=== PATIENT | female | born 2000 | race African-American/Black ===

== ENCOUNTER 2019-03-04 14:07 | Observation (INO) ==
--- NOTE | 2019-03-04 15:18 | Emergency Department Note ---
Overdose - [facility] Narrative Medical decision making narrative: EKG was obtained that showed evidence of sinus rhythm 72 beats a minute, patient does appear to have right axis deviation. Do not appreciate ST elevation or si gnificant depression, SD and QT intervals are within normal limits. Interpreted by myself. Case was also discussed with Poison Control Center. At this time patient is only having a symptom of some tiredness. At this point in time the patient has no arrhythmias. The patient will be further supported here in emergency room. Poison control stated to 6 hours from time of ingestion should be a medical clearance time. This would put her at 7pm for medical clearance. Patient remained stable here in the emergency room, the patient was medically clear, patient was evaluated by psychiatric services. Patient is going to be admitted to the psychiatric floor in otherwise stable condition. As was again discussed with poison control. At this time patient has been managed supportively, On monitor. Patient has had no widening of QRS. The patient has remained stable. - Lab Data Result diagrams: 03/04/19 14:59 03/04/19 14:59 Lab Results 03/04/19 03/04/19 03/04/19 Range/Units 14:55 14:59 14:59 WBC 8.1 (4.3-11.1) K/mcL RBC 4.68 (3.82-4.97) M/mcL Hgb 14.4 (11.5-15.4) g/dL Hct 43.8 (35.3-44.9) % MCV 93.6 (83.0-100.0) fL MCH 30.8 (28.0-33.3) pg MCHC 32.9 (31.6-35.5) g/dL RDW 12.3 (11.5-14.5) % Plt Count 336 (140-400) K/mcL MPV 9.1 L (9.4-12.4) fL Immature Gran % 0.5 (0-4) % Seg Neutrophils % 54.3 % Lymphocytes % 34.4 % Monocytes % 8.7 % Eosinophils % 1.6 % Basophils % 0.5 % Neutrophils # 4.4 (1.6-8.9) K/mcL Lymphocytes # 2.8 (0.6-4.6) K/mcL Monocytes # 0.7 (0.0-1.3) K/mcL Eosinophils # 0.1 (0.0-0.6) K/mcL Basophils # 0.0 (0.0-0.2) K/mcL Sodium 140 (136-145) mEq/L Potassium 3.9 (3.5-5.1) mEq/L Chloride 107 (98-107) mEq/L Carbon Dioxide 25 (23-29) mEq/L BUN 9 (6-20) mg/dL Creatinine 0.71 (0.60-1.20) mg/dL Est GFR ( Amer) > 60 Est GFR (Non-Af Amer) > 60 BUN/Creatinine Ratio 13 (6-26) Glucose 92 (70-105) mg/dL Calculated Osmolality 288 (280-300) Calcium 9.5 (8.6-10.3) mg/dL Urine Color Yellow (Yellow) Urine Clarity Clear (Clear) Urine pH 7.0 (5.0-8.0) pH Units Ur Specific [place] 1.029 H (1.010-1.025) Urine Protein Trace (Neg-Trace) mg/dL Urine Glucose (UA) Normal (Normal) mg/dL Urine Ketones Negative (Negative) mg/dL Urine Blood Negative (Negative) Urine Nitrite Negative (Negative) Urine Bilirubin Negative (Negative) Urine Urobilinogen Normal (Normal) mg/dL Ur Leukocyte Esterase Moderate H (Negative) Urine Microscopic RBC 3-5 H (0-3) per hpf Urine Microscopic WBC 15-30 H (0-3) per hpf Ur Squamous Epith Cells Many H (None-Few) per lpf Urine Bacteria Few (None-Few) per hpf Hyaline Casts None Seen (None-Few) per lpf Urine Test (Negative) Salicylates < 2.5 L (15.0-30.0) mg/dL Urine Opiates Screen (Iofvve=385) ng/mL Ur Buprenorphine Scrn (Cutoff=5) ng/mL Acetaminophen < 10 L (10-20) mcg/mL Ur Barbiturates Screen (Eqkgwn=888) ng/mL Ur Phencyclidine Scrn (Cutoff=25) ng/mL Ur Amphetamines Screen (Wlkuae=3534) ng/mL U Benzodiazepines Scrn (Wbhwkz=650) ng/mL Urine Cocaine Screen (Cutoff= 300) ng/mL U Marijuana (THC) Screen (Cutoff = 50) ng/mL Ur Drug Screen Interp Ethyl Alcohol < 10 (Less than 10) mg/dL 03/04/19 03/04/19 Range/Units 15:04 15:04 WBC (4.3-11.1) K/mcL RBC (3.82-4.97) M/mcL Hgb (11.5-15.4) g/dL Hct (35.3-44.9) % MCV (83.0-100.0) fL MCH (28.0-33.3) pg MCHC (31.6-35.5) g/dL RDW (11.5-14.5) % Plt Count (140-400) K/mcL MPV (9.4-12.4) fL Immature Gran % (0-4) % Seg Neutrophils % % Lymphocytes % % Monocytes % % Eosinophils % % Basophils % % Neutrophils # (1.6-8.9) K/mcL Lymphocytes # (0.6-4.6) K/mcL Monocytes # (0.0-1.3) K/mcL Eosinophils # (0.0-0.6) K/mcL Basophils # (0.0-0.2) K/mcL Sodium (136-145) mEq/L Potassium (3.5-5.1) mEq/L Chloride (98-107) mEq/L Carbon Dioxide (23-29) mEq/L BUN (6-20) mg/dL Creatinine (0.60-1.20) mg/dL Est GFR ( Amer) Est GFR (Non-Af Amer) BUN/Creatinine Ratio (6-26) Glucose (70-105) mg/dL Calculated Osmolality (280-300) Calcium (8.6-10.3) mg/dL Urine Color (Yellow) Urine Clarity (Clear) Urine pH (5.0-8.0) pH Units Ur Specific [place] (1.010-1.025) Urine Protein (Neg-Trace) mg/dL Urine Glucose (UA) (Normal) mg/dL Urine Ketones (Negative) mg/dL Urine Blood (Negative) Urine Nitrite (Negative) Urine Bilirubin (Negative) Urine Urobilinogen (Normal) mg/dL Ur Leukocyte Esterase (Negative) Urine Microscopic RBC (0-3) per hpf Urine Microscopic WBC (0-3) per hpf Ur Squamous Epith Cells (None-Few) per lpf Urine Bacteria (None-Few) per hpf Hyaline Casts (None-Few) per lpf Urine Test Negative (Negative) Salicylates (15.0-30.0) mg/dL Urine Opiates Screen Negative (Zdjoqg=382) ng/mL Ur Buprenorphine Scrn Negative (Cutoff=5) ng/mL Acetaminophen (10-20) mcg/mL Ur Barbiturates Screen Negative (Tmkxqm=231) ng/mL Ur Phencyclidine Scrn Negative (Cutoff=25) ng/mL Ur Amphetamines Screen Negative (Blwzhz=8284) ng/mL U Benzodiazepines Scrn Negative (Awrdps=777) ng/mL Urine Cocaine Screen Negative (Cutoff= 300) ng/mL U Marijuana (THC) Screen Positive H (Cutoff = 50) ng/mL Ur Drug Screen Interp See Below Ethyl Alcohol (Less than 10) mg/dL Overdose HPI - General Chief Complaint: ED Overdose Stated Complaint: si/od Time Seen by Provider: 03/04/19 15:10 Source: patient Limitations: no limitations - History of Present Illness HPI Narrative: Patient is 18-year-old female presents to emergency room after an overdose. The patient does have complaints of suicidal ideation that was her main goal was to try to hurt herself. The patient states that she took 20, 20 mg tablets of Lexapro and 10, 2 mg tablets of Abilify. Patient states that she only complains of some mild tenderness currently. She denies any lightheadedness, chest pain, palpitations, abdominal pain. Patient states that she has tried herself in the past. She has been admitted to [facility] in [place] in the past. The patient denies any other focal arm or leg weakness. The patient denies any GI or complaints. - Related Data Home Medications Medication Instructions Recorded Confirmed Synthroid 0.112 mg PO DAILY 06/25/15 03/04/19 ARIPiprazole [Abilify] 2 mg PO HS 03/04/19 03/04/19 Escitalopram [Lexapro] 20 mg PO DAILY 03/04/19 03/04/19 Allergies Allergy/AdvReac Type Severity Reaction Status Date / Time No Known Allergies Allergy Verified 06/26/17 10:06 Review of Systems: As mentioned per history of present illness and as follows. Constitutional: Negative for chills or fever HENT: Negative for sore throat. Eyes: Negative for visual disturbance Respiratory: Negative for shortness of breath. Cardiovascular: Negative for palpitations. Gastrointestinal: Negative for abdominal pain Genitourinary: Negative for dysuria Musculoskeletal: Negative for back pain. Skin: Negative for rash. Neurological: Negative for focal weakness Psychiatric/Behavioral: Positive for depression Past Medical History - Past Medical History Medical history: Reports: thyroid disease Surgical history: Reports: no surgical history Psychiatric history: Reports: anxiety, depression - Social History Smoking Status: Current every day smoker Smokeless Tobacco Status: No Alcohol use: Reports: occasionally Drug use: Reports: none Physical Exam PHYSICAL EXAM Constitutional: Well developed, Well nourished, obese, No acute distress, Non- toxic appearance. HENT: Normocephalic, Atraumatic, Bilateral external ears normal, Oropharynx moist, No oral exudates, Nose normal. Neck- Normal range of motion, No tenderness, Supple. Eyes: PERRL, EOMI, Conjunctiva normal,. Cardiovascular: Regular rate and rhythm without clicks, rubs, gallops or murmurs. Respiratory: Normal breath sounds, No respiratory distress, No wheezing, rhonchi, or crackles. GI: Soft, nontender, no evidence of guarding or peritoneal signs. Bowel sounds are active. Musculoskeletal: Good range of motion in all major joints. No tenderness to palpation or major deformities noted. +5/5 strength noted to all extremities. Integument: Warm, Dry, No erythema, No rash. No edema. Neurologic: Alert & oriented x 3, Normal sensory function, No focal deficits noted. CN II-XII grossly intact. Psychiatric: The patient does voice suicidal ideation, she does have a somewhat flat affect here in the emergency room, she has not emotional. The patient does make good eye contact - General Limitations: no limitations General appearance: alert, in no apparent distress Course Vital Signs Temperature 98.5 F 03/04/19 14:13 Pulse Rate 89 03/04/19 14:13 Respiratory Rate 18 03/04/19 14:13 Blood Pressure 133/81 03/04/19 14:13 O2 Sat by Pulse Oximetry 98 03/04/19 14:13 Temperature 98.5 F 03/04/19 14:13 Pulse Rate 62 03/04/19 17:46 Respiratory Rate 14 03/04/19 17:46 Blood Pressure 113/63 03/04/19 17:46 O2 Sat by Pulse Oximetry 96 03/04/19 17:46 Oxygen Delivery Oxygen Delivery Room Air Critical Care Time Critical Care Time: Yes Total Critical Care Time: 35 Attestation: CRITICAL CARE TIME OF 35 MINUTES PERFORMING THIS INDIVIDUAL OUTSIDE OF SEPARATELY BILLABLE PROCEDURES. THIS INCLUDES BEDSIDE EVALUATION, INTERPRETATION OF EKG AND LAB TESTS AND CONSULTATIONS. Disposition Clinical Impression: Suicide attempt by multiple drug overdose Disposition: Admitted As Inpatient Condition: Fair Time of Disposition: 20:41
[2019-03-04 15:19] LABS: Basophils % 0.5 %; Eosinophils # 0.1 K/mcL (0.0-0.6); Eosinophils % 1.6 %; Hematocrit 43.8 % (35.3-44.9); Hemoglobin 14.4 g/dL (11.5-15.4); Immature Granulocytes % 0.5 % (0-4); Lymphocytes # 2.8 K/mcL (0.6-4.6); Lymphocytes % 34.4 %; Mean Corpuscular HGB Conc 32.9 g/dL (31.6-35.5); Mean Corpuscular Hemoglobin 30.8 pg (28.0-33.3); Mean Corpuscular Volume 93.6 fL (83.0-100.0); Mean Platelet Volume 9.1 fL (9.4-12.4); Monocytes # 0.7 K/mcL (0.0-1.3); Monocytes % 8.7 %; Neutrophils # 4.4 K/mcL (1.6-8.9); Platelet Count 336 K/mcL (140-400); Red Blood Count 4.68 M/mcL (3.82-4.97); Red Cell Distribution Width 12.3 % (11.5-14.5); Segmented Neutrophils % 54.3 %; White Blood Count 8.1 K/mcL (4.3-11.1)
[2019-03-04 15:19] LABS: Bilirubin,Urine Negative (Negative); Blood,Urine Negative (Negative); Clarity,Urine Clear (Clear); Color,Urine Yellow (Yellow); Glucose,Urine (UA) Normal (Normal); Ketones,Urine Negative (Negative); Leukocyte Esterase,Urine Moderate (Negative); Nitrite,Urine Negative (Negative); Protein,Urine Trace mg/dL (Neg-Trace); Specific Gravity,Urine 1.029 (1.010-1.025); Urobilinogen,Urine Normal (Normal)
[2019-03-04 15:22] LABS: Bacteria,Urine Few per hpf (None-Few); Hyaline Casts,Urine None Seen per lpf (None-Few); Squamous Epithelial Cell,Urine Many per lpf (None-Few); WBC,Urine 15-30 per hpf (0-3)
[2019-03-04 16:07] LABS: Acetaminophen < 10 mcg/mL (10-20); BUN/Creatinine Ratio 13 (6-26); Blood Urea Nitrogen 9 mg/dL (6-20); Calcium 9.5 mg/dL (8.6-10.3); Carbon Dioxide 25 mEq/L (23-29); Chloride 107 mEq/L (98-107); Ethanol < 10 mg/dL (Less than 10); Glucose 92 mg/dL (70-105); Osmolality,Calculated 288 (280-300); Potassium 3.9 mEq/L (3.5-5.1); Salicylate < 2.5 mg/dL (15.0-30.0); Sodium 140 mEq/L (136-145); eGFR For African Americans > 60; eGFR For Non-African Americans > 60
[2019-03-04 16:17] LABS: Amphetamine Screen,Urine Negative ng/mL (Cutoff=1000); Barbiturate Screen,Urine Negative ng/mL (Cutoff=200); Benzodiazepines Screen,Urine Negative ng/mL (Cutoff=200); Cannabinoid Screen,Urine Positive ng/mL (Cutoff = 50); Cocaine Screen,Urine Negative ng/mL (Cutoff= 300); Opiate Screen,Urine Negative ng/mL (Cutoff=300); Phencyclidine Screen,Urine Negative ng/mL (Cutoff=25)
[2019-03-04] MEDS ORDERED: Haloperidol Lactate 5 MG/ML VIAL IM PRN (21:22)
[2019-03-04] MEDS ORDERED: traZODone 50 MG TABLET PO PRN (21:22)
[2019-03-04] MEDS ORDERED: Acetaminophen 325 MG TABLET PO PRN (21:22)
[2019-03-04] MEDS ORDERED: *HR* LORazepam 1 MG TABLET PO PRN (21:22)
[2019-03-04] MEDS ORDERED: hydrOXYzine pamoate 25 MG CAPSULE PO PRN (21:22)
[2019-03-04] MEDS ORDERED: Nicotine 2 MG GUM BC PRN (21:22)
[2019-03-04] MEDS ORDERED: Mag Hydrox/Al Hydrox/Simeth 30 ML UDC PO PRN (21:22)
[2019-03-04] MEDS ORDERED: MOM Conc 10 ML UD.LIQ PO PRN (21:22)
[2019-03-04] MEDS ORDERED: *HR* LORazepam 2 MG/ML VIAL IM PRN (21:22)
[2019-03-04] MEDS ORDERED: ARIPiprazole 2 MG TABLET PO SCH (21:30)
[2019-03-05 09:56] VITALS: BP 106/71
--- NOTE | 2019-03-05 10:31 | Discharge Summary ---
Date of Encounter: 03/05/19 Time of Encounter: 10:17 History of Present Illness Chief complaint: overdose Admitted From: Home History of Present Illness: Ms. Post is a 18 year old female who was admitted after overdosing on her Lexapro and Abilify. Client believes she took 20 of one pill and 10 of another. Client states she was triggered to take the medications due to being alone. Client reports she does not like to be alone. Client states she is normally surrounded by people but that recently she has been house sitting and that yesterday she did not have enough contact with others. Client has chronic SI but states that provided she is around people she will not act on them. However, yesterday client states she did not have anyone around when experiencing her SI. Client states she is an "impulsive" person and will act on her suicidal thoughts without much provocation. Client states she has overdosed multiple times in her life in addition to trying things like "drowning" and "suffocation" but has only been hospitalized once at [facility] as a juvenile. Client is denying any further thoughts of suicide today. States she "regrets" taking her pills again. "I could be home right now with my sister and cuddling her cat." Client has supportive family including both parents and eleven siblings. Client also typically has the people she house sits for with her but they are on vacation. Client states they return tonight and client's father verified this. This feature writer spoke with client's father who feels comfortable having client come home. He is very familiar with client's tendency to act impulsively. He will lock up and dispense her meds. Client also has a sister visiting from out of town today and the family she lives with will be home tonight. Client is well linked with outpatient mental [facility] care through [facility]. She has an outpatient appointment with her prescriber on Thursday and she sees her counselor "daily" as her counselor drives her back and forth to work. 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 Client is physically healthy except for hypothyroidism. No AOD issues other than occasional THC. Today client is bright, reactive, and future oriented. She is denying any further SI, intent, or plan. She is denying HI/AH/VH. She has an extensive support network and quick outpatient follow-up. Her SI is triggered by being alone and her father has verified client will not be alone anymore as he will come get her and lock up her medications. Client also had recent med changes. Her Lexapro was increased and Abilify was added. These changes have not had time to clinically take effect yet so there is no need for any further adjustments today. Will plan to discharge to the care of family. Past Med Surg Social Fam HX - Past Medical History Medical history: thyroid disease - Past Psychiatric History Psychiatric history: Reports: depression, PTSD, prior suicide attempt, previous psychiatric hospitalization Family psychiatric history: Unknown Family History of Suicide: Unknown - Past Surgical History Surgical History: no surgical history - Social History Smoking Status: Current every day smoker Smokeless Tobacco Status: No Alcohol use: occasionally Drug use: none - Family History Father Adopted: [place]: Sebastian post Age: 52 Family Member Ethnicity: Non- Living Status: Still Living Hx Family Cardiac Disorders: Yes (ME) Hx Family Respiratory Disorders: Yes (COPD,Asthma) Hx Family Cancer: No Hx Family GI Disorders: No Hx Family Genitourinary Disorders: No Hx Family Endocrine Disorder: No Hx Family Musculoskeletal Disorders: Yes (sciatic nerves) Hx Family Neuromuscular Disorders: No Hx Family Neurologic Disorders: No Hx Family HEENT Disorders: No Hx Family Autoimmune Disorders: No Hx Family Reproductive Disorders: No Hx Family Psychosocial Disorders: Yes (depression et anxiety) Hx Family Medical Disorders: No Medications - Discharge Medications Prescriptions: ARIPiprazole [Abilify] 2 mg PO HS #7 tablet Escitalopram [Lexapro] 20 mg PO DAILY #7 tablet Synthroid 0.112 mg PO DAILY 06/25/15 [History] ARIPiprazole [Abilify] 2 mg PO HS #7 tablet 03/05/19 [Rx] Escitalopram [Lexapro] 20 mg PO DAILY #7 tablet 03/05/19 [Rx] Allergy/AdvReac Type Severity Reaction Status Date / Time No Known Allergies Allergy Verified 06/26/17 10:06 Review of Systems Constitutional: Denies: fever, chills, weakness, weight change Eyes: Denies: eye pain, vision change Ears, Nose, Throat: Denies: ear pain, throat pain, dental pain, hearing loss, congestion Cardiovascular: Denies: chest pain, palpitations, dyspnea on exertion Respiratory: Denies: cough, dyspnea, wheezes Gastrointestinal: Denies: abdominal pain, nausea, vomiting, diarrhea, constipation Genitourinary female: Denies: urgency, dysuria, frequency, abnormal menses, dyspareunia Musculoskeletal: Denies: joint swelling, joint pain Integumentary: Denies: rash, lesions, pruritus Neurological: Denies: headache, weakness, numbness, memory loss Endocrine: Denies: fatigue, heat or cold intolerance Hematologic/Lymphatic: Denies: easy bruising, lymphadenopathy Allergic/Immunologic: Denies: urticaria, itchy eyes Exam - HEENT Head exam IM: Present: atraumatic Eye exam IM: Present: EOMI, normal appearance, PERRL ENT exam IM: Present: normal exam - Neurological Neurological exam: Present: CN II-XII intact - Respiratory Respiratory exam IM: Present: CTAB - GI/Abdominal GI/Abdominal exam IM: Present: normal bowel sounds, soft. Absent: tenderness - Extremities Extremities exam IM: Present: full ROM - Skin Skin exam IM: Present: dry, warm - Constitutional Vitals: Temp Pulse Resp BP Pulse Ox 97.2 F L 66 18 106/71 97 03/05/19 09:00 03/05/19 09:00 03/05/19 09:00 03/05/19 09:00 03/05/19 09:00 General appearance: age & developmentally appropriate, well-groomed, well- nourished - Musculoskeletal Gait: normal Station: relaxed Strength & Tone: normal for patient - Psychiatric Patient Orientation: Yes Person, Yes Time, Yes Place Level of alertness: Alert Behavior: calm, cooperative Psychomotor activity: Normal Eye Contact: Maintains Eye Contact Mood Description: Euthymic/stable Affect description: congruent with mood, full range Speech Volume: Normal Speech pattern: normal rate, normal rhythm, normal tone, fluent, spontaneous Language & Vocabulary: consistent with education Thought Process: Linear, Goal Oriented Thought Content: No Suicidal ideation, No Homicidal ideation, No Overt delusions Perceptual Disturbances: No Auditory hallucinations, No Visual hallucinations Attention Span Ability: Capable of Focused Attention Memory Description: Grossly Intact Patient Reliability: Reliable Historian Fund of knowledge: Yes abstraction ability, Yes average, Yes aware of current events Intelligence Estimate: Average Judgment: Limited Insight: Partial Results - Drug Levels and Toxicology Drug Levels and Toxicology: Drug Levels and Toxicity 03/04/19 03/04/19 14:59 15:04 Urine Opiates Screen Negative Acetaminophen < 10 L Ur Barbiturates Screen Negative Ur Phencyclidine Scrn Negative Ur Amphetamines Screen Negative U Benzodiazepines Scrn Negative Urine Cocaine Screen Negative U Marijuana (THC) Screen Positive H Ethyl Alcohol < 10 - Labs Labs: Laboratory Last Values WBC 8.1 K/mcL (4.3-11.1) 03/04/19 14:59 RBC 4.68 M/mcL (3.82-4.97) 03/04/19 14:59 Hgb 14.4 g/dL (11.5-15.4) 03/04/19 14:59 Hct 43.8 % (35.3-44.9) 03/04/19 14:59 MCV 93.6 fL (83.0-100.0) 03/04/19 14:59 MCH 30.8 pg (28.0-33.3) 03/04/19 14:59 MCHC 32.9 g/dL (31.6-35.5) 03/04/19 14:59 RDW 12.3 % (11.5-14.5) 03/04/19 14:59 Plt Count 336 K/mcL (140-400) 03/04/19 14:59 MPV 9.1 fL (9.4-12.4) L 03/04/19 14:59 Immature Gran % 0.5 % (0-4) 03/04/19 14:59 Seg Neutrophils % 54.3 % 03/04/19 14:59 34.4 % 03/04/19 14:59 8.7 % 03/04/19 14:59 1.6 % 03/04/19 14:59 0.5 % 03/04/19 14:59 4.4 K/mcL (1.6-8.9) 03/04/19 14:59 2.8 K/mcL (0.6-4.6) 03/04/19 14:59 0.7 K/mcL (0.0-1.3) 03/04/19 14:59 0.1 K/mcL (0.0-0.6) 03/04/19 14:59 0.0 K/mcL (0.0-0.2) 03/04/19 14:59 Sodium 140 mEq/L (136-145) 03/04/19 14:59 Potassium 3.9 mEq/L (3.5-5.1) 03/04/19 14:59 Chloride 107 mEq/L (98-107) 03/04/19 14:59 Carbon Dioxide 25 mEq/L (23-29) 03/04/19 14:59 BUN 9 mg/dL (6-20) 03/04/19 14:59 0.71 mg/dL (0.60-1.20) 03/04/19 14:59 Est GFR ( Amer) > 60 03/04/19 14:59 Est GFR (Non-Af Amer) > 60 03/04/19 14:59 13 (6-26) 03/04/19 14:59 Glucose 92 mg/dL (70-105) 03/04/19 14:59 288 (280-300) 03/04/19 14:59 Calcium 9.5 mg/dL (8.6-10.3) 03/04/19 14:59 Yellow (Yellow) 03/04/19 14:55 Clear (Clear) 03/04/19 14:55 7.0 pH Units (5.0-8.0) 03/04/19 14:55 Ur Specific Prole 1.029 (1.010-1.025) H 03/04/19 14:55 Trace mg/dL (Neg-Trace) 03/04/19 14:55 Normal mg/dL (Normal) 03/04/19 14:55 Negative mg/dL (Negative) 03/04/19 14:55 Negative (Negative) 03/04/19 14:55 Negative (Negative) 03/04/19 14:55 Negative (Negative) 03/04/19 14:55 Normal mg/dL (Normal) 03/04/19 14:55 Ur Leukocyte Esterase Moderate (Negative) H 03/04/19 14:55 3-5 per hpf (0-3) H 03/04/19 14:55 15-30 per hpf (0-3) H 03/04/19 14:55 Ur Squamous Epith Cells Many per lpf (None-Few) H 03/04/19 14:55 Few per hpf (None-Few) 03/04/19 14:55 Hyaline Casts None Seen per lpf (None-Few) 03/04/19 14:55 Negative (Negative) 03/04/19 15:04 Salicylates < 2.5 mg/dL (15.0-30.0) L 03/04/19 14:59 Negative ng/mL (Lxttiz=014) 03/04/19 15:04 Ur Buprenorphine Scrn Negative ng/mL (Cutoff=5) 03/04/19 15:04 Acetaminophen < 10 mcg/mL (10-20) L 03/04/19 14:59 Ur Barbiturates Screen Negative ng/mL (Dndgrh=006) 03/04/19 15:04 Ur Phencyclidine Scrn Negative ng/mL (Cutoff=25) 03/04/19 15:04 Ur Amphetamines Screen Negative ng/mL (Psultm=1066) 03/04/19 15:04 U Benzodiazepines Scrn Negative ng/mL (Pxbxrm=218) 03/04/19 15:04 Negative ng/mL (Cutoff= 300) 03/04/19 15:04 U Marijuana (THC) Screen Positive ng/mL (Cutoff = 50) H 03/04/19 15:04 Ur Drug Screen Interp See Below 03/04/19 15:04 Ethyl Alcohol < 10 mg/dL (Less than 10) 03/04/19 14:59 Diagnosis - Discharge Diagnosis (1) Major depression Status: Acute Qualifiers: Major depression recurrence: recurrent Active/Remission status: currently active Major depression episode severity: moderate Qualified Code(s): F33.1 - Major depressive disorder, recurrent, moderate (2) Post traumatic stress disorder (PTSD) Status: Acute (3) Borderline personality disorder Status: Acute Assessment and Plan - Patient/Caregiver Discharge Instructions Activity: resume usual activities as tolerated Diet: low fat, low cholesterol - Follow up Plan Follow up with: NONE,PCP [Primary Care Provider] - Functional capacity at discharge: independent ambulation Overall status at discharge: Stable Disposition: Home, Self-Care Provider Date of admission: 03/04/19 20:38 Primary care physician: PCP NONE Discharging clinician: Danna Farooq Hospital Course Hospital course: Ms. Post is a 18 year old female who was admitted after overdosing on her Lexapro and Abilify. Client believes she took 20 of one pill and 10 of another. Client states she was triggered to take the medications due to being alone. Client reports she does not like to be alone. Client states she is normally surrounded by people but that recently she has been house sitting and that yesterday she did not have enough contact with others. Client has chronic SI but states that provided she is around people she will not act on them. However, yesterday client states she did not have anyone around when experiencing her SI. Client states she is an "impulsive" person and will act on her suicidal thoughts without much provocation. Client states she has overdosed multiple times in her life in addition to trying things like "drowning" and "suffocation" but has only been hospitalized once at [facility] as a juvenile. Client is denying any further thoughts of suicide today. States she "regrets" taking her pills again. "I could be home right now with my sister and cuddling her cat." Client has supportive family including both parents and eleven siblings. Client also typically has the people she house sits for with her but they are on vacation. Client states they return tonight and client's father verified this. This feature writer spoke with client's father who feels comfortable having client come home. He is very familiar with client's tendency to act impulsively. He will lock up and dispense her meds. Client also has a sister visiting from out of town today and the family she lives with will be home tonight. Client is well linked with outpatient mental health care through [facility]. She has an outpatient appointment with her prescriber on Thursday and she sees her counselor "daily" as her counselor drives her back and forth to work. 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 Client is physically healthy except for hypothyroidism. No AOD issues other than occasional THC. Today client is bright, reactive, and future oriented. She is denying any further SI, intent, or plan. She is denying HI/AH/VH. She has an extensive support network and quick outpatient follow-up. Her SI is triggered by being alone and her father has verified client will not be alone anymore as he will come get her and lock up her medications. Client also had recent med changes. Her Lexapro was increased and Abilify was added. These changes have not had time to clinically take effect yet so there is no need for any further adjustments today. Will plan to discharge to the care of family. Total time spent with client greater than 30 minutes. Patient was educated of her diagnosis and the risks, benefits, and side effects of this treatment and alternative treatment options and was monitored for responsiveness and side effects. Mood, anxiety, sleep, appetite, and interest improved, as did future orientation. Self-harm thoughts subsided, thinking cleared, psychosis resolved, and mood stabilized. Patient was able to attend both individual and group therapy sessions as well as meeting with the psychiatrist daily and urged to discuss any medication or treatment issues or other concerns. The patient was educated primarily by verbal means about their diagnosis and manifestations in their life. The option for treatment including group and individual therapy programming was offered to the patient in the use of medications with all their potential risks, benefits, and side effects were discussed with the patient at length. The patient was given the opportunity to ask questions and was noted to participate in the treatment in the planning process. The patient felt ready and eager to be discharged from the inpatient psychiatric unit to continue on with treatment as an outpatient. The patient agreed that she is safe for this disposition. The patient was considered to be able to participate in informed consent and decision making with respect to medical, legal, and financial issues of the time of discharge. At the time of discharge the patient adamantly denied any concerns for lethality including suicidal or homicidal thoughts ideations or plans and was future oriented toward ongoing mental health care, medical follow-up and sobriety. - Time Spent with Patient Total time spent providing and/or coordinating discharge services: Greater than 30 minutes Procedures - Procedures Procedures: Medication Management, Crisis Stabilization, Supportive Therapy, Group Therapy Quality - Multiple Antipsychotics Patient discharged on 2 or more antipsychotic medications: No
--- NOTE | 2019-03-06 09:26 | Electrocardiograph Report ---
[facility] Test Date: 2019-03-04 Pat Name: Nydia Post Department: [id number] Room: 1A53 Gender: F Staffing Assistant: : [id number] Requested By: [id number] Order Number: [id number] Evangelista MD: Bobby Bagley Measurements Intervals [place] Rate: 72 P: 128 KS: 150 QRS: 112 QRSD: 93 T: 154 QT: 395 QTc: 433 Interpretive Statements Right and left arm electrode reversal, interpretation assumes no reversal Sinus rhythm Right axis deviation Abnormal T, consider ischemia, lateral leads Electronically Signed On 03-06-2019 9:24:32 EDT by Bobby Bagley
== END 2019-03-05 11:50 | disposition home or self-care (01) ==
LOC: EMEROOARM 14:07 → 1ANU 20:38 → INTOOBSV 20:38 → 1ANU 21:08
PROVIDERS: ADMIT Psychiatry & Neurology Psychiatry; ATTEND Psychiatry & Neurology Psychiatry

== ENCOUNTER 2019-04-10 20:25 | Observation (INO) ==
[2019-04-10] MEDS ORDERED: Isovue-370 500 ML BOTTLE IVP ONE ×2 (20:49→21:46)
[2019-04-10] MEDS ORDERED: 0.9 % Sodium Chloride 1,000 ML IVC ONE (20:53)
[2019-04-10 21:22] LABS: Basophils # 0.1 K/mcL (0.0-0.2); Basophils % 0.3 %; Eosinophils % 0.1 %; Hematocrit 43.4 % (35.3-44.9); Hemoglobin 14.4 g/dL (11.5-15.4); Immature Granulocytes % 0.4 % (0-4); Lymphocytes # 2.2 K/mcL (0.6-4.6); Lymphocytes % 12.8 %; Mean Corpuscular HGB Conc 33.2 g/dL (31.6-35.5); Mean Corpuscular Hemoglobin 30.8 pg (28.0-33.3); Mean Corpuscular Volume 92.9 fL (83.0-100.0); Mean Platelet Volume 8.9 fL (9.4-12.4); Monocytes # 1.9 K/mcL (0.0-1.3); Monocytes % 10.8 %; Neutrophils # 13.1 K/mcL (1.6-8.9); Platelet Count 335 K/mcL (140-400); Red Blood Count 4.67 M/mcL (3.82-4.97); Segmented Neutrophils % 75.6 %; White Blood Count 17.4 K/mcL (4.3-11.1)
[2019-04-10] MEDS ORDERED: Piperacillin/Tazobactam 3.375 GM in 0.9 % Sodium Chloride Mini Bag 100 ML IVPB ONE (21:29)
[2019-04-10] MEDS ORDERED: *HR* FentaNYL (PF) 100 MCG/2 ML VIAL IVP ONE (21:40)
[2019-04-10 21:42] LABS: BUN/Creatinine Ratio 12 (6-26); Blood Urea Nitrogen 10 mg/dL (6-20); Calcium 9.4 mg/dL (8.6-10.3); Carbon Dioxide 21 mEq/L (23-29); Chloride 102 mEq/L (98-107); Glucose 101 mg/dL (70-105); Osmolality,Calculated 277 (280-300); Potassium 3.8 mEq/L (3.5-5.1); Sodium 134 mEq/L (136-145); eGFR For African Americans > 60; eGFR For Non-African Americans > 60
[2019-04-10 23:30] LABS: Bilirubin,Urine Small (Negative); Blood,Urine Negative (Negative); Clarity,Urine Turbid (Clear); Color,Urine Dark Yellow (Yellow); Glucose,Urine (UA) Normal (Normal); Ketones,Urine Trace mg/dL (Negative); Leukocyte Esterase,Urine Large (Negative); Nitrite,Urine Negative (Negative); PH,Urine 5.5 pH Units (5.0-8.0); Protein,Urine 30 mg/dL (Neg-Trace); Urobilinogen,Urine Normal (Normal)
[2019-04-10 23:31] LABS: Bacteria,Urine Few per hpf (None-Few); Hyaline Casts,Urine None Seen per lpf (None-Few); RBC,Urine 0-3 per hpf (0-3); Squamous Epithelial Cell,Urine Many per lpf (None-Few); WBC,Urine TNTC per hpf (0-3)
[2019-04-10 23:41] LABS: Trichomonas,Urine Present (None Seen)
[2019-04-10 23:42] LABS: Amorphous Sediment,Urine Many (Few)
[2019-04-11] MEDS ORDERED: Morphine Sulfate Oral CONC 10 MG/0.5 ML ORAL.SYG SL PRN ×2 (00:22→18:32)
[2019-04-11] MEDS ORDERED: Ondansetron 4 MG/2 ML VIAL IVP PRN ×2 (00:22→18:32)
[2019-04-11] MEDS ORDERED: 0.9 % Sodium Chloride 1,000 ML IVC SCH ×2 (00:30→18:32)
[2019-04-11] MEDS: Acetaminophen IV 1,000 MG/100 ML INFUS..BTL IVPB SCH ×2 (05:08→11:56)
[2019-04-11] MEDS ORDERED: *HR* Heparin 5,000 UNIT/ML VIAL SQ SCH (06:00)
[2019-04-11] MEDS ORDERED: Pantoprazole 40 MG VIAL IVP SCH (06:30)
[2019-04-11] MEDS ORDERED: MetroNIDAZOLE 500 MG/100 ML 500 MG/100 ML BAG IVPB SCH ×2 (08:00→20:00)
[2019-04-11 09:15] LABS: Basophils % 0.2 %; Eosinophils # 0.1 K/mcL (0.0-0.6); Eosinophils % 0.7 %; Hematocrit 41.2 % (35.3-44.9); Hemoglobin 13.5 g/dL (11.5-15.4); Immature Granulocytes % 0.6 % (0-4); Lymphocytes % 12.3 %; Mean Corpuscular HGB Conc 32.8 g/dL (31.6-35.5); Mean Corpuscular Hemoglobin 30.6 pg (28.0-33.3); Mean Corpuscular Volume 93.4 fL (83.0-100.0); Mean Platelet Volume 8.9 fL (9.4-12.4); Monocytes # 1.4 K/mcL (0.0-1.3); Monocytes % 8.6 %; Neutrophils # 12.6 K/mcL (1.6-8.9); Platelet Count 283 K/mcL (140-400); Red Blood Count 4.41 M/mcL (3.82-4.97); Red Cell Distribution Width 12.1 % (11.5-14.5); Segmented Neutrophils % 77.6 %; White Blood Count 16.2 K/mcL (4.3-11.1)
[2019-04-11 09:51] LABS: BUN/Creatinine Ratio 13 (6-26); Blood Urea Nitrogen 9 mg/dL (6-20); Calcium 8.5 mg/dL (8.6-10.3); Carbon Dioxide 22 mEq/L (23-29); Chloride 107 mEq/L (98-107); Glucose 99 mg/dL (70-105); Osmolality,Calculated 281 (280-300); Potassium 3.8 mEq/L (3.5-5.1); Sodium 136 mEq/L (136-145); eGFR For African Americans > 60; eGFR For Non-African Americans > 60
[2019-04-11 09:54] LABS: Thyroid Stimulating Hormone 12.018 mcIU/mL (0.340-5.600)
[2019-04-11] MEDS ORDERED: *HR* FentaNYL (PF) 100 MCG/2 ML VIAL ONE ×2 (15:54→16:14)
[2019-04-11] MEDS ORDERED: *HR* Propofol 200 MG/20 ML VIAL IVP ONE ×2 (15:54→16:14)
[2019-04-11] MEDS ORDERED: *HR* Midazolam HCl 2 MG/2 ML VIAL ONE ×2 (15:54→16:14)
[2019-04-11] MEDS ORDERED: Lidocaine -MPF 4% 5 ML AMPUL ONE ×2 (15:55→16:18)
[2019-04-11] MEDS ORDERED: Dexamethasone 4 MG/ML VIAL ONE ×2 (15:55→16:14)
[2019-04-11] MEDS ORDERED: Lidocaine -MPF 2% 2 ML VIAL ONE ×2 (15:55→16:14)
[2019-04-11] MEDS ORDERED: Ondansetron 4 MG/2 ML VIAL ONE ×2 (15:55→16:14)
[2019-04-11] MEDS ORDERED: *HR* Succinylcholine 200 MG/10 ML VIAL IVP ONE ×2 (15:55→16:14)
[2019-04-11] MEDS ORDERED: CefOXitin 1,000 MG VIAL ONE (16:11)
[2019-04-11] MEDS ORDERED: Ketorolac 30 MG/ML VIAL IVP ONE (17:33)
[2019-04-11] MEDS: *HR* HYDROmorphone (PF) 1 MG/ML SYRINGE IVP PRN ×2 (17:41→17:52)
[2019-04-12] MEDS: Acetaminophen IV 1,000 MG/100 ML INFUS..BTL IVPB SCH ×2 (00:42→06:24)
[2019-04-12] MEDS ORDERED: *HR* Heparin 5,000 UNIT/ML VIAL SQ SCH (06:00)
[2019-04-12] MEDS ORDERED: Pantoprazole 40 MG VIAL IVP SCH (06:30)
[2019-04-12 06:41] LABS: Basophils % 0.1 %; Eosinophils % 0.1 %; Hematocrit 41.7 % (35.3-44.9); Hemoglobin 13.8 g/dL (11.5-15.4); Immature Granulocytes % 0.4 % (0-4); Lymphocytes # 1.1 K/mcL (0.6-4.6); Lymphocytes % 8.7 %; Mean Corpuscular HGB Conc 33.1 g/dL (31.6-35.5); Mean Corpuscular Hemoglobin 31.5 pg (28.0-33.3); Mean Corpuscular Volume 95.2 fL (83.0-100.0); Mean Platelet Volume 9.2 fL (9.4-12.4); Monocytes # 0.7 K/mcL (0.0-1.3); Monocytes % 5.2 %; Neutrophils # 11.3 K/mcL (1.6-8.9); Platelet Count 299 K/mcL (140-400); Red Blood Count 4.38 M/mcL (3.82-4.97); Red Cell Distribution Width 11.8 % (11.5-14.5); Segmented Neutrophils % 85.5 %; White Blood Count 13.2 K/mcL (4.3-11.1)
[2019-04-12 07:03] LABS: BUN/Creatinine Ratio 16 (6-26); Blood Urea Nitrogen 10 mg/dL (6-20); Calcium 9.1 mg/dL (8.6-10.3); Carbon Dioxide 24 mEq/L (23-29); Chloride 105 mEq/L (98-107); Glucose 131 mg/dL (70-105); Osmolality,Calculated 287 (280-300); Potassium 4.4 mEq/L (3.5-5.1); Sodium 138 mEq/L (136-145); eGFR For African Americans > 60; eGFR For Non-African Americans > 60
[2019-04-12] MEDS ORDERED: Sulfamethoxazole/Trimeth DS 1 EACH TABLET PO SCH (09:33)
[2019-04-12] MEDS ORDERED: Levothyroxine 25 MCG TABLET PO SCH (09:33)
[2019-04-12] MEDS ORDERED: *HR* HYDROcodone/Acet 5/325 mg TABLET PO PRN (09:34)
[2019-04-12] MEDS ORDERED: Ibuprofen 800 MG TABLET PO ONE (09:34)
[2019-04-12] MEDS ORDERED: Ondansetron ODT 4 MG TAB.RAPDIS SL PRN (09:34)
[2019-04-12 10:48] VITALS: BP 105/70
== END 2019-04-12 13:30 | disposition home or self-care (01) ==
LOC: EMEROOARM 20:25 → 3NENU 20:25
PROVIDERS: ADMIT Surgery; ATTEND Surgery

== ENCOUNTER 2020-03-04 22:24 | Inpatient (IN) ==
[2020-03-04 23:23] LABS: Amphetamine Screen,Urine Negative ng/mL (Cutoff=1000); Barbiturate Screen,Urine Negative ng/mL (Cutoff=200); Benzodiazepines Screen,Urine Negative ng/mL (Cutoff=200); Cannabinoid Screen,Urine Negative ng/mL (Cutoff = 50); Cocaine Screen,Urine Negative ng/mL (Cutoff= 300); Opiate Screen,Urine Negative ng/mL (Cutoff=300); Phencyclidine Screen,Urine Negative ng/mL (Cutoff=25)
[2020-03-05 00:21] LABS: Acetaminophen < 10 mcg/mL (10-20); Alanine Aminotransferase 23 Units/L (7-52); Albumin 4.3 g/dL (3.5-5.7); Albumin/Globulin Ratio 1.5 (1.1-2.2); Alkaline Phosphatase 49 Units/L (34-104); Aspartate Amino Transferase 17 Units/L (13-39); BUN/Creatinine Ratio 17 (6-26); Bilirubin,Direct 0.1 mg/dL (0.0-0.2); Bilirubin,Indirect 0.3 mg/dL (0.0-1.0); Bilirubin,Total 0.4 mg/dL (0.3-1.0); Blood Urea Nitrogen 12 mg/dL (6-20); Calcium 9.5 mg/dL (8.6-10.3); Carbon Dioxide 23 mEq/L (23-29); Chloride 105 mEq/L (98-107); Ethanol < 10 mg/dL (Less than 10); Globulin 2.8 g/dL (2.4-3.5); Glucose 99 mg/dL (70-105); Osmolality,Calculated 286 (280-300); Potassium 3.8 mEq/L (3.5-5.1); Salicylate < 2.5 mg/dL (15.0-30.0); Sodium 138 mEq/L (136-145); Total Protein 7.1 g/dL (6.4-8.9); eGFR For African Americans > 60 (> 60); eGFR For Non-African Americans > 60 (> 60)
[2020-03-05 00:27] LABS: Basophils # 0.1 K/mcL (0.0-0.2); Basophils % 0.4 %; Eosinophils # 0.1 K/mcL (0.0-0.6); Hematocrit 45.4 % (35.3-44.9); Hemoglobin 15.2 g/dL (11.5-15.4); Immature Granulocytes % 0.2 % (0-4); Lymphocytes # 2.9 K/mcL (0.6-4.6); Lymphocytes % 23.6 %; Mean Corpuscular HGB Conc 33.5 g/dL (31.6-35.5); Mean Corpuscular Hemoglobin 30.8 pg (28.0-33.3); Mean Corpuscular Volume 92.1 fL (83.0-100.0); Mean Platelet Volume 9.1 fL (9.4-12.4); Monocytes # 0.9 K/mcL (0.0-1.3); Monocytes % 7.1 %; Neutrophils # 8.3 K/mcL (1.6-8.9); Platelet Count 349 K/mcL (140-400); Red Blood Count 4.93 M/mcL (3.82-4.97); Red Cell Distribution Width 11.9 % (11.5-14.5); Segmented Neutrophils % 67.7 %; White Blood Count 12.2 K/mcL (4.3-11.1)
[2020-03-05] MEDS ORDERED: hydrOXYzine pamoate 25 MG CAPSULE PO PRN (05:22)
[2020-03-05] MEDS ORDERED: Mag Hydrox/Al Hydrox/Simeth 30 ML UDC PO PRN (05:22)
[2020-03-05] MEDS ORDERED: Haloperidol Lactate 5 MG/ML VIAL IM PRN (05:22)
[2020-03-05] MEDS ORDERED: MOM Conc 10 ML UD.LIQ PO PRN (05:22)
[2020-03-05] MEDS ORDERED: QUEtiapine Fumarate 25 MG TABLET PO PRN (05:22)
[2020-03-05] MEDS ORDERED: Acetaminophen 325 MG TABLET PO PRN (05:22)
[2020-03-05] MEDS ORDERED: *HR* LORazepam 1 MG TABLET PO PRN (05:22)
[2020-03-05] MEDS ORDERED: haloperidoL 5 MG TABLET PO PRN (05:22)
[2020-03-05] MEDS ORDERED: *HR* LORazepam 2 MG/ML VIAL IM PRN (05:22)
[2020-03-05] MEDS: Nicotine 14 MG PATCH.TD24 TD SCH (14:39)
[2020-03-05] MEDS: Venlafaxine XR (24 HR) 37.5 MG CAP.ER.24H PO SCH (14:55)
[2020-03-05] MEDS ORDERED: traZODone 50 MG TABLET PO SCH (21:00)
[2020-03-06] MEDS ORDERED: ARIPiprazole 10 MG TABLET PO SCH (09:00)
[2020-03-06] MEDS: Venlafaxine XR (24 HR) 37.5 MG CAP.ER.24H PO SCH (09:15)
[2020-03-06] MEDS: Nicotine 14 MG PATCH.TD24 TD SCH (09:16)
[2020-03-06 10:17] VITALS: BP 112/81
== END 2020-03-06 13:50 | disposition home or self-care (01) | DRG 817 ==
LOC: EMEROOARM 22:24 → 1ANU 03-05 05:20
PROVIDERS: ADMIT Psychiatry & Neurology Psychiatry; ATTEND Psychiatry & Neurology Psychiatry

== ENCOUNTER 2020-08-13 17:42 | Inpatient (IN) ==
[2020-08-13 18:33] LABS: Bacteria,Urine Few per hpf (None-Few); Bilirubin,Urine Negative (Negative); Blood,Urine Negative (Negative); Budding Yeast,Urine Few per hpf (None Seen); Clarity,Urine Turbid (Clear); Color,Urine Yellow (Yellow); Glucose,Urine (UA) Normal (Normal); Ketones,Urine Negative (Negative); Leukocyte Esterase,Urine Negative (Negative); Mucus,Urine Few per lpf (None-Few); Nitrite,Urine Negative (Negative); PH,Urine 7.5 pH Units (5.0-8.0); Protein,Urine Trace mg/dL (Neg-Trace); RBC,Urine 0-3 per hpf (0-3); Specific Gravity,Urine 1.018 (1.010-1.025); Squamous Epithelial Cell,Urine Moderate per hpf (None-Few); Urobilinogen,Urine Normal (Normal); WBC,Urine 15-30 per hpf (0-3)
[2020-08-13 18:39] LABS: Amphetamine Screen,Urine Negative ng/mL (Cutoff=1000); Barbiturate Screen,Urine Negative ng/mL (Cutoff=200); Benzodiazepines Screen,Urine Negative ng/mL (Cutoff=200); Cannabinoid Screen,Urine Negative ng/mL (Cutoff = 50); Cocaine Screen,Urine Negative ng/mL (Cutoff= 300); Opiate Screen,Urine Negative ng/mL (Cutoff=300); Phencyclidine Screen,Urine Negative ng/mL (Cutoff=25)
[2020-08-13 19:19] LABS: VBG HCO3 22 mEq/L (21-27); VBG PCO2 35 mmHg (41-51); VBG PH 7.42 pH Units (7.32-7.42); VBG PO2 80 mmHg (25-50)
[2020-08-13 19:26] LABS: Basophils # 0.1 K/mcL (0.0-0.2); Basophils % 0.3 %; Eosinophils # 0.3 K/mcL (0.0-0.6); Eosinophils % 1.7 %; Hematocrit 47.8 % (35.3-44.9); Hemoglobin 16.1 g/dL (11.5-15.4); Immature Granulocytes % 0.4 % (0-4); Lymphocytes # 2.9 K/mcL (0.6-4.6); Lymphocytes % 20.3 %; Mean Corpuscular HGB Conc 33.7 g/dL (31.6-35.5); Mean Corpuscular Hemoglobin 31.1 pg (28.0-33.3); Mean Corpuscular Volume 92.5 fL (83.0-100.0); Mean Platelet Volume 9.3 fL (9.4-12.4); Monocytes # 1.1 K/mcL (0.0-1.3); Monocytes % 7.3 %; Neutrophils # 10.1 K/mcL (1.6-8.9); Platelet Count 400 K/mcL (140-400); Red Blood Count 5.17 M/mcL (3.82-4.97); Red Cell Distribution Width 11.7 % (11.5-14.5); White Blood Count 14.5 K/mcL (4.3-11.1)
[2020-08-13 19:32] LABS: Estimated Average Glucose 108 mg/dl; Hemoglobin A1C 5.4 %
[2020-08-13 19:46] LABS: Acetaminophen < 10 mcg/mL (10-20); Albumin 4.6 g/dL (3.5-5.7); Albumin/Globulin Ratio 1.6 (1.1-2.2); BUN/Creatinine Ratio 12 (6-26); Bilirubin,Indirect 0.4 mg/dL (0.0-1.0); Bilirubin,Total 0.4 mg/dL (0.3-1.0); Blood Urea Nitrogen 9 mg/dL (6-20); Carbon Dioxide 22 mEq/L (23-29); Chloride 104 mEq/L (98-107); Chol/HDL Ratio 4.2 (0-4.9); Cholesterol 151 mg/dL (< 200); Ethanol < 10 mg/dL (Less than 10); Globulin 2.8 g/dL (2.4-3.5); Glucose 92 mg/dL (70-105); HDL Cholesterol 36 mg/dL (40-59); LDL Cholesterol,Calculated 69 mg/dL (< 100); Osmolality,Calculated 276 (280-300); Potassium 3.5 mEq/L (3.5-5.1); Salicylate < 2.5 mg/dL (15.0-30.0); Sodium 134 mEq/L (136-145); Total Protein 7.4 g/dL (6.4-8.9); Triglycerides 230 mg/dL (< 150); eGFR For African Americans > 60 (> 60); eGFR For Non-African Americans > 60 (> 60)
[2020-08-13 20:01] LABS: Thyroid Stimulating Hormone 9.12 mcIU/mL (0.340-5.600)
[2020-08-13] MEDS ORDERED: Isovue-370 500 ML BOTTLE IVP ONE (20:11)
[2020-08-13] MEDS ORDERED: hydrOXYzine pamoate 25 MG CAPSULE PO PRN (23:04)
[2020-08-13] MEDS ORDERED: *HR* LORazepam 1 MG TABLET PO PRN (23:04)
[2020-08-13] MEDS ORDERED: MOM Conc 10 ML UD.LIQ PO PRN (23:04)
[2020-08-13] MEDS ORDERED: Mag Hydrox/Al Hydrox/Simeth 30 ML UDC PO PRN (23:04)
[2020-08-13] MEDS ORDERED: traZODone 50 MG TABLET PO PRN (23:04)
[2020-08-13] MEDS ORDERED: Acetaminophen 325 MG TABLET PO PRN (23:04)
[2020-08-13] MEDS ORDERED: *HR* LORazepam 2 MG/ML VIAL IM PRN (23:04)
[2020-08-13] MEDS ORDERED: haloperidoL 5 MG TABLET PO PRN (23:04)
[2020-08-13] MEDS ORDERED: Haloperidol Lactate 5 MG/ML VIAL IM PRN (23:04)
[2020-08-14] MEDS: ARIPiprazole 5 MG TABLET PO SCH (09:00)
[2020-08-14] MEDS: Triamcinolone Acet 0.1% CRM 15 GM TUBE TP SCH ×2 (12:42→20:55)
[2020-08-14] MEDS: lamoTRIgine 25 MG TABLET PO SCH (20:55)
[2020-08-15] MEDS: ARIPiprazole 5 MG TABLET PO SCH (08:39)
[2020-08-15] MEDS: Triamcinolone Acet 0.1% CRM 15 GM TUBE TP SCH ×2 (08:40→21:07)
[2020-08-15] MEDS: lamoTRIgine 25 MG TABLET PO SCH (21:07)
[2020-08-16] MEDS: ARIPiprazole 5 MG TABLET PO SCH (08:32)
[2020-08-16] MEDS: Triamcinolone Acet 0.1% CRM 15 GM TUBE TP SCH (08:34)
[2020-08-16 09:31] VITALS: BP 113/75
== END 2020-08-16 11:45 | disposition home or self-care (01) | DRG 751 ==
LOC: EMEROOARM 17:42 → 1ANU 22:57
PROVIDERS: ADMIT Psychiatry & Neurology Psychiatry; ATTEND Psychiatry & Neurology Psychiatry

== ENCOUNTER 2020-10-26 14:39 | Inpatient (IN) ==
[2020-10-26 15:32] LABS: Basophils # 0.1 K/mcL (0.0-0.2); Basophils % 0.7 %; Eosinophils # 0.4 K/mcL (0.0-0.6); Eosinophils % 3.2 %; Hematocrit 45.8 % (35.3-44.9); Hemoglobin 15.7 g/dL (11.5-15.4); Immature Granulocytes % 0.5 % (0-4); Lymphocytes # 3.5 K/mcL (0.6-4.6); Lymphocytes % 29.9 %; Mean Corpuscular HGB Conc 34.3 g/dL (31.6-35.5); Mean Corpuscular Hemoglobin 31.7 pg (28.0-33.3); Mean Corpuscular Volume 92.5 fL (83.0-100.0); Monocytes # 0.9 K/mcL (0.0-1.3); Monocytes % 7.7 %; Neutrophils # 6.8 K/mcL (1.6-8.9); Platelet Count 358 K/mcL (140-400); Red Blood Count 4.95 M/mcL (3.82-4.97); Red Cell Distribution Width 11.8 % (11.5-14.5); White Blood Count 11.7 K/mcL (4.3-11.1)
[2020-10-26 15:43] LABS: Bacteria,Urine Few per hpf (None-Few); Bilirubin,Urine Negative (Negative); Blood,Urine Negative (Negative); Clarity,Urine Turbid (Clear); Color,Urine Yellow (Yellow); Glucose,Urine (UA) Normal (Normal); Hyaline Casts,Urine Few per lpf (None Seen); Ketones,Urine Negative (Negative); Leukocyte Esterase,Urine Negative (Negative); Mucus,Urine Few per lpf (None-Few); Nitrite,Urine Negative (Negative); Protein,Urine 200 mg/dL (Neg-Trace); RBC,Urine 0-3 per hpf (0-3); Specific Gravity,Urine 1.028 (1.010-1.025); Squamous Epithelial Cell,Urine Moderate per hpf (None-Few); Urobilinogen,Urine Normal (Normal)
[2020-10-26 15:46] LABS: Acetaminophen < 10 mcg/mL (10-20); BUN/Creatinine Ratio 16 (6-26); Blood Urea Nitrogen 11 mg/dL (6-20); Calcium 9.9 mg/dL (8.6-10.3); Carbon Dioxide 24 mEq/L (23-29); Chloride 102 mEq/L (98-107); Cholesterol 208 mg/dL (< 200); Ethanol < 10 mg/dL (Less than 10); Glucose 102 mg/dL (70-105); HDL Cholesterol 42 mg/dL (40-59); LDL Cholesterol,Calculated 117 mg/dL (< 100); Osmolality,Calculated 280 (280-300); Potassium 3.6 mEq/L (3.5-5.1); Salicylate < 2.5 mg/dL (15.0-30.0); Sodium 135 mEq/L (136-145); Triglycerides 244 mg/dL (< 150); eGFR For African Americans > 60 (> 60); eGFR For Non-African Americans > 60 (> 60)
[2020-10-26 15:53] LABS: Amphetamine Screen,Urine Negative ng/mL (Cutoff=1000); Barbiturate Screen,Urine Negative ng/mL (Cutoff=200); Benzodiazepines Screen,Urine Negative ng/mL (Cutoff=200); Cannabinoid Screen,Urine Positive ng/mL (Cutoff = 50); Cocaine Screen,Urine Negative ng/mL (Cutoff= 300); Opiate Screen,Urine Negative ng/mL (Cutoff=300); Phencyclidine Screen,Urine Negative ng/mL (Cutoff=25)
[2020-10-26 15:57] LABS: Estimated Average Glucose 105 mg/dl; Hemoglobin A1C 5.3 %
[2020-10-26] MEDS ORDERED: Ondansetron ODT 4 MG TAB.RAPDIS SL ONE (20:15)
[2020-10-26] MEDS ORDERED: MOM Conc 10 ML UD.LIQ PO PRN (20:47)
[2020-10-26] MEDS ORDERED: Mag Hydrox/Al Hydrox/Simeth 30 ML UDC PO PRN (20:47)
[2020-10-26] MEDS ORDERED: hydrOXYzine pamoate 25 MG CAPSULE PO PRN (20:47)
[2020-10-26] MEDS ORDERED: Haloperidol Lactate 5 MG/ML VIAL IM PRN (20:47)
[2020-10-26] MEDS ORDERED: haloperidoL 5 MG TABLET PO PRN (20:47)
[2020-10-26] MEDS ORDERED: *HR* LORazepam 2 MG/ML VIAL IM PRN (20:47)
[2020-10-26] MEDS ORDERED: *HR* LORazepam 1 MG TABLET PO PRN (20:47)
[2020-10-26] MEDS ORDERED: traZODone 50 MG TABLET PO PRN (21:00)
[2020-10-27] MEDS: Ibuprofen 400 MG TABLET PO PRN (05:28)
[2020-10-27] MEDS ORDERED: Nicotine 2 MG GUM BC PRN (06:43)
[2020-10-27] MEDS: ARIPiprazole 10 MG TABLET PO SCH (08:49)
[2020-10-28] MEDS: Ibuprofen 400 MG TABLET PO PRN ×3 (03:07→21:23)
[2020-10-28] MEDS: ARIPiprazole 10 MG TABLET PO SCH (09:01)
[2020-10-29] MEDS: ARIPiprazole 10 MG TABLET PO SCH (08:53)
[2020-10-29 12:35] VITALS: BP 112/69
== END 2020-10-29 16:00 | disposition home or self-care (01) | DRG 817 ==
LOC: EMEROOARM 14:39 → 1ANU 20:45
PROVIDERS: ADMIT Psychiatry & Neurology Psychiatry; ATTEND Psychiatry & Neurology Psychiatry

== ENCOUNTER 2021-01-08 18:12 | Inpatient (IN) ==
[2021-01-08 18:55] LABS: Hematocrit 47.6 % (35.3-44.9); Hemoglobin 15.9 g/dL (11.5-15.4); Immature Granulocytes % 0.4 % (0-4); Lymphocytes % 36.9 %; Mean Corpuscular HGB Conc 33.4 g/dL (31.6-35.5); Mean Corpuscular Hemoglobin 31.3 pg (28.0-33.3); Mean Corpuscular Volume 93.7 fL (83.0-100.0); Mean Platelet Volume 8.7 fL (9.4-12.4); Monocytes % 10.1 %; Platelet Count 344 K/mcL (140-400); Red Blood Count 5.08 M/mcL (3.82-4.97); Red Cell Distribution Width 11.9 % (11.5-14.5); Segmented Neutrophils % 48.9 %; White Blood Count 8.4 K/mcL (4.3-11.1)
[2021-01-08 18:56] LABS: Basophils # 0.1 K/mcL (0.0-0.2); Basophils % 0.6 %; Eosinophils # 0.3 K/mcL (0.0-0.6); Eosinophils % 3.1 %; Lymphocytes # 3.1 K/mcL (0.6-4.6); Monocytes # 0.9 K/mcL (0.0-1.3); Neutrophils # 4.1 K/mcL (1.6-8.9)
[2021-01-08 18:59] LABS: Bacteria,Urine Few per hpf (None-Few); Bilirubin,Urine Negative (Negative); Blood,Urine Negative (Negative); Clarity,Urine Turbid (Clear); Color,Urine Yellow (Yellow); Glucose,Urine (UA) Normal (Normal); Ketones,Urine Negative (Negative); Leukocyte Esterase,Urine Negative (Negative); Mucus,Urine Few per lpf (None-Few); Nitrite,Urine Negative (Negative); Protein,Urine Trace mg/dL (Neg-Trace); RBC,Urine 0-3 per hpf (0-3); Specific Gravity,Urine 1.028 (1.010-1.025); Squamous Epithelial Cell,Urine Moderate per hpf (None-Few); Urobilinogen,Urine Normal (Normal); WBC,Urine 0-3 per hpf (0-3)
[2021-01-08 19:04] LABS: Amphetamine Screen,Urine Negative ng/mL (Cutoff=1000); Barbiturate Screen,Urine Negative ng/mL (Cutoff=200); Benzodiazepines Screen,Urine Negative ng/mL (Cutoff=200); Cannabinoid Screen,Urine Negative ng/mL (Cutoff = 50); Cocaine Screen,Urine Negative ng/mL (Cutoff= 300); Opiate Screen,Urine Negative ng/mL (Cutoff=300); Phencyclidine Screen,Urine Negative ng/mL (Cutoff=25)
[2021-01-08 19:14] LABS: Acetaminophen < 10 mcg/mL (10-20); BUN/Creatinine Ratio 15 (6-26); Blood Urea Nitrogen 10 mg/dL (6-20); Calcium 9.7 mg/dL (8.6-10.3); Carbon Dioxide 24 mEq/L (23-29); Chloride 107 mEq/L (98-107); Ethanol < 10 mg/dL (Less than 10); Glucose 100 mg/dL (70-105); Osmolality,Calculated 285 (280-300); Potassium 3.9 mEq/L (3.5-5.1); Salicylate < 2.5 mg/dL (15.0-30.0); Sodium 138 mEq/L (136-145); eGFR For African Americans > 60 (> 60); eGFR For Non-African Americans > 60 (> 60)
[2021-01-08] MEDS ORDERED: Acetaminophen 325 MG TABLET PO PRN (21:44)
[2021-01-08] MEDS ORDERED: *HR* LORazepam 2 MG/ML VIAL IM PRN (21:44)
[2021-01-08] MEDS ORDERED: haloperidoL 5 MG TABLET PO PRN (21:44)
[2021-01-08] MEDS ORDERED: traZODone 50 MG TABLET PO PRN (21:44)
[2021-01-08] MEDS ORDERED: hydrOXYzine pamoate 25 MG CAPSULE PO PRN (21:44)
[2021-01-08] MEDS ORDERED: Haloperidol Lactate 5 MG/ML VIAL IM PRN (21:44)
[2021-01-08] MEDS ORDERED: *HR* LORazepam 1 MG TABLET PO PRN (21:44)
[2021-01-10 09:35] VITALS: BP 118/64
== END 2021-01-10 11:55 | disposition home or self-care (01) | DRG 751 ==
LOC: EMEROOARM 18:12 → 1ANU 21:35
PROVIDERS: ADMIT Psychiatry & Neurology Psychiatry; ATTEND Psychiatry & Neurology Psychiatry